=== PATIENT | female | born 1940 | race Caucasian/White ===

== ENCOUNTER 2022-04-12 19:46 | Inpatient (IN) | payer OTHER, MEDICAID ==
[~2022-04-12] VITALS: Ht 157.5 cm; Wt 63.5 kg
[2022-04-12 19:51] VITALS: BP 139/89
[2022-04-12] MEDS ORDERED: RIVA20TA PO (20:11)
[2022-04-12] MEDS ORDERED: PREG150C PO (20:11)
[2022-04-12] MEDS ORDERED: INSU100V4 SQ (20:11)
[2022-04-12] MEDS ORDERED: ATOR20TA PO (20:11)
[2022-04-12] MEDS ORDERED: METF-1139 PO (20:11)
[2022-04-12] MEDS ORDERED: GABA100C PO (20:11)
[2022-04-12] MEDS ORDERED: FLUO40CA6 PO (20:11)
[2022-04-12] MEDS ORDERED: METH2.5T6 PO (20:11)
[2022-04-12] MEDS ORDERED: METO100T14 PO (20:11)
[2022-04-12] MEDS ORDERED: DIT5 PO (20:11)
[2022-04-12] MEDS ORDERED: OMEP40EC23 PO (20:11)
[2022-04-12] MEDS ORDERED: SLIDE SUBQ (20:11)
[2022-04-12] MEDS ORDERED: CHOL100018 PO (20:11)
[2022-04-12] MEDS ORDERED: SEMA0.25 SQ (20:11)
[2022-04-12 21:11] LABS: BASOPHILS % (AUTO) 0.2 % (0.0-2.0); EOSINOPHILS % (AUTO) 0.2 % (0.0-4.0); HEMATOCRIT 34.5 % (36-48); HEMOGLOBIN 11.7 g/dL (12.0-16.0); LYMPHOCYTES # (AUTO) 0.8 K/uL (2.5-16.5); LYMPHOCYTES % (AUTO) 8.7 % (20.5-51.1); MEAN CORPUSCULAR HEMOGLOBIN 27 pg (27-31); MEAN CORPUSCULAR HGB CONC 34 g/dL (33-37); MEAN CORPUSCULAR VOLUME 80.5 fL (80-94); MONOCYTES # (AUTO) 0.3 K/uL (0.8-1.0); MONOCYTES % (AUTO) 3.1 % (1.7-9.3); NEUTROPHILS # (AUTO) 8.5 K/uL (1.8-7.7); NEUTROPHILS % (AUTO) 87.8 % (42.2-75.2); PLATELET COUNT (AUTO) 214 K/uL (140-450); RED BLOOD CELL COUNT(AUTO) 4.29 MIL/uL (4.20-5.40); RED CELL DISTRIBUTION WIDTH 21.4 % (11.6-13.7); WHITE BLOOD COUNT (AUTO) 9.7 K/uL (4.8-10.8)
[2022-04-12] MEDS ORDERED: NACL 0.9% 500 ML IV ONE ×2 (21:45→22:00)
[2022-04-12 22:04] LABS: SODIUM SERUM 133 mmol/L (136-145)
[2022-04-12 22:05] LABS: ANION GAP 17.2 (8-16); CARBON DIOXIDE 22.6 mmol/L (21-32); CHLORIDE 97 mmol/L (98-107); GLUCOSE 337 mg/dL (74-106); POTASSIUM 3.8 mmol/L (3.5-5.1); TOTAL BILIRUBIN 0.6 mg/dL (0.0-1.0); UREA NITROGEN, BLOOD 10 mg/dL (7-18)
[2022-04-12 22:06] LABS: ALBUMIN 2.8 g/dL (3.4-5.0); ASPARTATE AMINOTRANSFERASE 18 U/L (15-37)
[2022-04-13] MEDS ORDERED: cefTRIAXone 1,000 MG VIAL ONE (00:06)
[2022-04-13] MEDS ORDERED: DOCUSATE SODIUM 100 MG GELCAP PO PRN (00:10)
[2022-04-13] MEDS: DEXT 5% /NACL 0.9% 1,000 ML IV SCH ×2 (00:10→14:00)
[2022-04-13] MEDS ORDERED: guaiFENesin DM 200/20 MG-10 ML 10 ML UDC PO PRN (00:10)
[2022-04-13] MEDS ORDERED: ACETAMINOPHEN 325 MG TAB PO PRN (00:10)
[2022-04-13] MEDS ORDERED: ZOLPIDEM 5 MG TAB PO PRN (00:10)
[2022-04-13 00:19] LABS: APPEARANCE,URINE SL CLOUDY (CLEAR); BILIRUBIN,URINE NEGATIVE (NEGATIVE); BLOOD, URINE 3+ (NEGATIVE); COLOR,URINE YELLOW (YELLOW); LEUKOCYTE ESTERASE ,URINE 2+ (NEGATIVE); NITRITE, URINE POSITIVE (NEGATIVE); PH,URINE 5.5 (5.0-9.0); UGLUCOSE 3+ (NEGATIVE)
[2022-04-13 00:32] LABS: PROTHROMBIN TIME 13.2 secs (10.8-13.4)
[2022-04-13 00:48] LABS: MAGNESIUM 0.7 mg/dL (1.8-2.4)
[2022-04-13 00:49] LABS: CHOL/HDL RATIO 2.2 (1-4.5); PHOSPHORUS 3.4 mg/dL (2.5-4.9)
[2022-04-13 00:50] LABS: FREE T4 (FREE THYROXINE) 1.56 ng/dL (0.76-1.46); THYROID STIMULATING HORMONE 1.31 uIU/mL (0.34-3.74)
[2022-04-13 01:24] LABS: WBC,URINE TOO MANY TO COUNT /HPF (0-5)
[2022-04-13] MEDS ORDERED: MAG SULF 2000 MG/WATER PREMIX 50 ML IV SCH (01:45)
[2022-04-13] MEDS ORDERED: MAG SULF 2000 MG/WATER PREMIX 50 ML IV ONE (01:57)
[2022-04-13 02:40] VITALS: BP 138/78
[2022-04-13 08:00] VITALS: BP 148/73
[2022-04-13] MEDS: PANTOPRAZOLE 40 MG TABEC PO SCH (09:17)
[2022-04-13 16:00] VITALS: BP 139/69
[2022-04-13] MEDS: ONDANSETRON 4 MG/2 ML VIAL IM/IVP PRN (17:49)
[2022-04-13 18:02] LABS: LIPASE 12 U/L (73-393)
[2022-04-14] VITALS: BP 141/66
[2022-04-14] MEDS: DEXT 5% /NACL 0.9% 1,000 ML IV SCH ×3 (01:10→22:06)
[2022-04-14 05:41] LABS: BASOPHILS % (AUTO) 0.3 % (0.0-2.0); EOSINOPHILS # (AUTO) 0.1 K/uL (0-0.4); HEMATOCRIT 31.2 % (36-48); HEMOGLOBIN 10.5 g/dL (12.0-16.0); LYMPHOCYTES # (AUTO) 1.2 K/uL (2.5-16.5); LYMPHOCYTES % (AUTO) 18.2 % (20.5-51.1); MEAN CORPUSCULAR HEMOGLOBIN 27 pg (27-31); MEAN CORPUSCULAR HGB CONC 34 g/dL (33-37); MEAN CORPUSCULAR VOLUME 81.8 fL (80-94); MONOCYTES # (AUTO) 0.2 K/uL (0.8-1.0); NEUTROPHILS % (AUTO) 76.5 % (42.2-75.2); PLATELET COUNT (AUTO) 206 K/uL (140-450); RED BLOOD CELL COUNT(AUTO) 3.81 MIL/uL (4.20-5.40); RED CELL DISTRIBUTION WIDTH 21.1 % (11.6-13.7); WHITE BLOOD COUNT (AUTO) 6.5 K/uL (4.8-10.8)
[2022-04-14 05:50] LABS: ANION GAP 12.1 (8-16); CARBON DIOXIDE 27.8 mmol/L (21-32); CHLORIDE 101 mmol/L (98-107); CREATININE 0.7 mg/dL (0.6-1.3); GLUCOSE 313 mg/dL (74-106); SODIUM SERUM 138 mmol/L (136-145); UREA NITROGEN, BLOOD 2 mg/dL (7-18)
[2022-04-14 06:00] LABS: POTASSIUM 2.9 mmol/L (3.5-5.1)
[2022-04-14] MEDS: POTASSIUM CHLORIDE 10 MEQ TABER PO PRN (06:15)
[2022-04-14 08:00] VITALS: BP 140/80
[2022-04-14] MEDS: PANTOPRAZOLE 40 MG TABEC PO SCH (08:45)
[2022-04-14] MEDS: MAGNESIUM OXIDE 400 MG TAB PO SCH (08:47)
[2022-04-14] MEDS: ONDANSETRON 4 MG/2 ML VIAL IM/IVP PRN ×2 (09:51→18:07)
[2022-04-14 10:02] LABS: CREATININE 0.7 mg/dL (0.6-1.3)
[2022-04-14 11:08] LABS: T4 (THYROXINE) 11.5 ug/dL (4.5-12.0)
[2022-04-14] MEDS ORDERED: HYDROCOLLOID DRESSING TP PRN (11:40)
[2022-04-14] MEDS: metroNIDAZOLE 500 MG/NS PREMIX 100 ML IV SCH ×2 (13:30→20:35)
[2022-04-14] MEDS: HYDRAGUARD CREAM TP SCH (13:30)
[2022-04-14 16:00] VITALS: BP 142/73
[2022-04-14 20:00] VITALS: BP 99/62
[2022-04-15] MEDS: HYDRAGUARD CREAM TP SCH ×2 (00:17→13:41)
[2022-04-15] MEDS: metroNIDAZOLE 500 MG/NS PREMIX 100 ML IV SCH (04:14)
[2022-04-15 05:54] LABS: CARBON DIOXIDE 27.8 mmol/L (21-32); CHLORIDE 104 mmol/L (98-107); CREATININE 0.7 mg/dL (0.6-1.3); GLUCOSE 311 mg/dL (74-106); SODIUM SERUM 139 mmol/L (136-145); UREA NITROGEN, BLOOD 2 mg/dL (7-18)
[2022-04-15 05:56] LABS: BASOPHILS % (AUTO) 0.4 % (0.0-2.0); EOSINOPHILS # (AUTO) 0.1 K/uL (0-0.4); EOSINOPHILS % (AUTO) 1.3 % (0.0-4.0); HEMATOCRIT 28.7 % (36-48); HEMOGLOBIN 9.9 g/dL (12.0-16.0); LYMPHOCYTES # (AUTO) 0.9 K/uL (2.5-16.5); MEAN CORPUSCULAR HEMOGLOBIN 27 pg (27-31); MEAN CORPUSCULAR HGB CONC 34 g/dL (33-37); MEAN CORPUSCULAR VOLUME 79.8 fL (80-94); MONOCYTES # (AUTO) 0.2 K/uL (0.8-1.0); MONOCYTES % (AUTO) 3.9 % (1.7-9.3); NEUTROPHILS # (AUTO) 4.9 K/uL (1.8-7.7); NEUTROPHILS % (AUTO) 79.4 % (42.2-75.2); PLATELET COUNT (AUTO) 205 K/uL (140-450); RED CELL DISTRIBUTION WIDTH 20.9 % (11.6-13.7); WHITE BLOOD COUNT (AUTO) 6.1 K/uL (4.8-10.8)
[2022-04-15 06:06] LABS: POTASSIUM 2.8 mmol/L (3.5-5.1)
[2022-04-15 08:00] VITALS: BP 172/75
[2022-04-15] MEDS: MAGNESIUM OXIDE 400 MG TAB PO SCH (09:00)
[2022-04-15] MEDS: PANTOPRAZOLE 40 MG TABEC PO SCH (09:00)
[2022-04-15] MEDS: METOPROLOL SUCCINATE 50 MG TABER PO SCH (09:25)
[2022-04-15] MEDS: POTASSIUM CHLORIDE 10 MEQ TABER PO PRN (10:26)
[2022-04-15] MEDS: MAG SULF 2000 MG/WATER PREMIX 100 ML IV SCH ×2 (10:30→12:30)
[2022-04-15] MEDS ORDERED: POTASSIUM CHLORIDE 40 MEQ, LIDOCAINE 1% 25 MG in NACL 0.9% 250 ML IV SCH (11:00)
[2022-04-15] MEDS: MUPIROCIN CA NASAL 2% 1GM TUBE NS SCH (11:41)
[2022-04-15] MEDS: CHLORHEXADINE GLUC 2% CLOTH TP SCH (11:41)
[2022-04-15] MEDS ORDERED: POTASSIUM CHLORIDE 10 MEQ TABER PO SCH (13:00)
[2022-04-15] MEDS ORDERED: DEXTROSE 50% 50 ML SYR IVP PRN (13:25)
[2022-04-15] MEDS: DEXT 5% /NACL 0.9% 1,000 ML IV SCH ×2 (14:42→20:00)
[2022-04-15 16:00] VITALS: BP 125/74
[2022-04-15] MEDS: BLOOD GLUCOSE MONITORING 1 DEV DEV FS SCH ×2 (16:42→22:00)
[2022-04-15] MEDS: INSULIN LISPRO SLIDING SCALE 100 UNITS/ML VIAL SUBQ PRN ×2 (17:54→22:06)
[2022-04-15] MEDS: POTASSIUM CHLORIDE 10 MEQ TABER PO SCH ×2 (20:44→21:00)
[2022-04-15] MEDS ORDERED: ATORVASTATIN 20 MG TAB PO SCH (21:00)
[2022-04-15] MEDS ORDERED: MEROPENEM 500 MG in NACL 0.9% 50 ML IV SCH (21:00)
[2022-04-15] MEDS ORDERED: MAG SULF 2000 MG/WATER PREMIX 100 ML IV SCH (21:00)
[2022-04-15] MEDS: MEROPENEM 1,000 MG in NACL 0.9% 50 ML IV SCH (22:00)
[2022-04-16] VITALS: BP 143/78
[2022-04-16] MEDS: HYDRAGUARD CREAM TP SCH ×2 (01:00→13:00)
[2022-04-16 05:18] LABS: BASOPHILS % (AUTO) 0.5 % (0.0-2.0); EOSINOPHILS # (AUTO) 0.2 K/uL (0-0.4); HEMATOCRIT 29.9 % (36-48); HEMOGLOBIN 10.2 g/dL (12.0-16.0); LYMPHOCYTES # (AUTO) 0.8 K/uL (2.5-16.5); LYMPHOCYTES % (AUTO) 11.7 % (20.5-51.1); MEAN CORPUSCULAR HEMOGLOBIN 28 pg (27-31); MEAN CORPUSCULAR HGB CONC 34 g/dL (33-37); MEAN CORPUSCULAR VOLUME 80.4 fL (80-94); MONOCYTES # (AUTO) 0.3 K/uL (0.8-1.0); MONOCYTES % (AUTO) 5.1 % (1.7-9.3); NEUTROPHILS # (AUTO) 5.2 K/uL (1.8-7.7); NEUTROPHILS % (AUTO) 79.7 % (42.2-75.2); PLATELET COUNT (AUTO) 223 K/uL (140-450); RED BLOOD CELL COUNT(AUTO) 3.72 MIL/uL (4.20-5.40); WHITE BLOOD COUNT (AUTO) 6.6 K/uL (4.8-10.8)
[2022-04-16 06:02] LABS: ANION GAP 11.6 (8-16); CARBON DIOXIDE 25.8 mmol/L (21-32); CHLORIDE 103 mmol/L (98-107); CREATININE 0.6 mg/dL (0.6-1.3); GLUCOSE 298 mg/dL (74-106); POTASSIUM 3.4 mmol/L (3.5-5.1); SODIUM SERUM 137 mmol/L (136-145); UREA NITROGEN, BLOOD 3 mg/dL (7-18)
[2022-04-16] MEDS: BLOOD GLUCOSE MONITORING 1 DEV DEV FS SCH ×2 (06:18→11:33)
[2022-04-16] MEDS: INSULIN LISPRO SLIDING SCALE 100 UNITS/ML VIAL SUBQ PRN ×2 (06:20→11:52)
[2022-04-16 08:00] VITALS: BP 156/82
[2022-04-16] MEDS ORDERED: FLUoxetine 20 MG CAP PO SCH (09:00)
[2022-04-16] MEDS ORDERED: RIVAROXABAN 10 MG TAB PO SCH (09:00)
[2022-04-16] MEDS ORDERED: OXYBUTYNIN 5 MG TAB PO SCH (09:00)
[2022-04-16] MEDS: MEROPENEM 1,000 MG in NACL 0.9% 50 ML IV SCH (09:41)
[2022-04-16] MEDS: METOPROLOL SUCCINATE 50 MG TABER PO SCH (10:23)
[2022-04-16] MEDS: PANTOPRAZOLE 40 MG TABEC PO SCH (10:23)
[2022-04-16] MEDS: MAGNESIUM OXIDE 400 MG TAB PO SCH (10:23)
[2022-04-16] MEDS ORDERED: METO50TE2 PO (11:20)
[2022-04-16] MEDS ORDERED: MERO1PIG IV (11:20)
[2022-04-16] MEDS: MUPIROCIN CA NASAL 2% 1GM TUBE NS SCH (11:51)
[2022-04-16] MEDS: CHLORHEXADINE GLUC 2% CLOTH TP SCH (11:51)
[2022-04-16 15:24] VITALS: BP 156/82
[2022-04-17] MEDS ORDERED: HYDROCOLLOID DRESSING TP SCH (13:00)
== END 2022-04-16 16:13 | disposition home or self-care (01) | DRG 871 ==
LOC: MED 19:46 → MMU 04-13 00:08 → MTU 04-13 00:27
PROVIDERS: ADMIT Family Medicine; ATTEND Family Medicine
DX: A41.9 Sepsis, unspecified organism (principal); G93.41 Metabolic encephalopathy; L89.153 Pressure ulcer of sacral region, stage 3; N39.0 Urinary tract infection, site not specified; E87.1 Hypo-osmolality and hyponatremia; K52.9 Noninfective gastroenteritis and colitis, unspecified; I10 Essential (primary) hypertension; E78.5 Hyperlipidemia, unspecified; F03.90 Unspecified dementia, unspecified severity, without behavioral disturbance, psychotic disturbance, mood disturbance, and anxiety; I48.91 Unspecified atrial fibrillation; M32.9 Systemic lupus erythematosus, unspecified; E86.0 Dehydration; D64.9 Anemia, unspecified; E11.65 Type 2 diabetes mellitus with hyperglycemia; Z20.822 Contact with and (suspected) exposure to COVID-19; E83.51 Hypocalcemia; E87.8 Other disorders of electrolyte and fluid balance, not elsewhere classified; E83.42 Hypomagnesemia; Z88.5 Allergy status to narcotic agent; Z79.01 Long term (current) use of anticoagulants; Z90.49 Acquired absence of other specified parts of digestive tract; Z79.4 Long term (current) use of insulin
CPT/HCPCS: 36415; 70450; 71045; 80048; 80053; 81001; 82150; 82948; 83036; 83690; 83735; 83880; 84100; 84436; 84439; 84443; 84479; 84484; 85025; 85610; 85730; 87081; 87086; 96361; 96365; 97110; 97163-GP; 97530; 99285; J0696; J2001; J2185; J2405; J3475; J3480; J3490; J7030; J7060; Q0092